=== PATIENT | male | born 1965 | race Caucasian/White ===

== ENCOUNTER → 2020-07-12 | Outpatient (CLI) | payer OTHER ==
--- NOTE | 2020-07-12 11:13 | RAD ---
EXAM: Bilateral knees, standing view; left knee, 2 views. HISTORY: Pain. COMPARISON: None. FINDINGS: A frontal standing view both knees and 2 views of the left knee are obtained. There is mild medial compartment joint space narrowing, subchondral sclerosis and spurring involving the left knee. There is a corticated ossicle medial to the left medial femoral condyle possibly due to prior medial collateral ligament injury. There is left knee chondrocalcinosis and there are suspected left knee joint loose bodies. There is a small left knee effusion. There is enthesopathy along the superior patella. There are track walter within the distal left femur and proximal left tibia due to prior instrumentation. IMPRESSION: 1. Mild medial compartment osteoarthritis of the left knee with suspected chondrocalcinosis, joint loose bodies and a small joint effusion. 2. Track walter within the left femur and tibia due to prior instrumentation. Electronically signed by: Leann Doyle MD (07/12/2020 11:10 AM) [id number]
== END ==
LOC: DXRAD 10:13
PROVIDERS: ATTEND Orthopaedic Surgery
DX: M17.12 Unilateral primary osteoarthritis, left knee (principal); M25.462 Effusion, left knee; M76.52 Patellar tendinitis, left knee
CPT/HCPCS: 73560; 73565